=== PATIENT | male | born 1990 | race Hispanic/Latino ===

== ENCOUNTER 2017-04-21 11:35 | Emergency (ER) | payer OTHER ==
[~2017-04-21] VITALS: Ht 188 cm; Wt 88.1 kg
[~2017-04-21 11:35] MED LIST: DOXYCYCLINE HY100 MG PO; FLEXERIL10 MG PO; INDOCIN50 MG PO; NORCO 5/3251 TABLET PO
[2017-04-21 14:28] LABS: HEMATOCRIT 41.8 % (38.0-50.0); MCH 29.5 PG (29.0-34.0); MCHC 33.7 G/DL (30.0-36.0); MCV 87.4 FL (86-99); MEAN PLAT.VOLUME 10.4 uM^3 (9.0-12.4); PLATELET COUNT 273 K/uL (156-360); RBC DIS.WIDTH-CV 12.6 % (11.8-14.6); RBC DIS.WIDTH-SD 40.9 % (39-53); RED BLOOD COUNT 4.78 M/uL (4.00-5.50); WHITE BLOOD COUNT 11.1 K/uL (4.1-10.2)
[2017-04-21 14:37] LABS: CHLORIDE 105 mEq/L (99-109); POTASSIUM 4.3 mEq/L (3.7-5.4); SODIUM 139 mEq/L (136-147)
[2017-04-21 14:39] LABS: GLUCOSE 108 mg/dL (70-99)
[2017-04-21 14:40] LABS: ANION GAP 11 MEQ/L (2-14)
[2017-04-21 14:41] LABS: TOTAL BILIRUBIN 0.6 mg/dL (0.0-1.0)
[2017-04-21 14:43] LABS: ALKALINE PHOSPHATASE 54 IU/L (3-129); GFR ESTIMATE (CALCULATED) > 59 mL/min/
[2017-04-21 14:44] LABS: UREA NITROGEN (BUN) 16 mg/dL (9-23)
[2017-04-21] MEDS ORDERED: BENTYL20 MG PO (15:40)
[2017-04-21] MEDS ORDERED: ZOFRAN ODT4 MG PO (15:40)
[2017-04-21 15:42] LABS: ADD MIUA? NO; BILIRUBIN NEGATIVE; BLOOD NEGATIVE; COLOR YELLOW ((YELLOW)); GLUCOSE (STRIP) NEGATIVE; KETONES NEGATIVE; LEUKOCYTES NEGATIVE; NITRITE NEGATIVE; PROTEIN (STRIP) 30; SPECIFIC GRAVITY 1.029 (1.000-1.030); UCUL ADDED? NO; UROBILINOGEN 0.2 MG/DL (0.2-1.0)
[2017-04-21 15:52] LABS: LIPASE 24 U/L (1.0-51.0)
[2017-04-21 16:07] VITALS: BP 145/93
== END 2017-04-21 16:28 | disposition home or self-care (01) ==
LOC: EME 11:35
DX: R11.2 Nausea with vomiting, unspecified (principal); R19.7 Diarrhea, unspecified; Z87.891 Personal history of nicotine dependence
CPT/HCPCS: 80053; 81003; 83690; 85027; 99281; 99285